=== PATIENT | female | born 1960 | race Caucasian/White ===

== ENCOUNTER → 2023-10-18 13:09 | Outpatient (REF) | payer MEDICARE, BC, SELFPAY | LOC: RAD 13:09 | PROVIDERS: ATTENDING PHYSICIAN Surgery; FAMILY PHYSICIAN Family Medicine | DX: K80.20 Calculus of gallbladder without cholecystitis without obstruction (principal); R10.11 Right upper quadrant pain; Z80.0 Family history of malignant neoplasm of digestive organs | CPT/HCPCS: 74177; Q9967 ==